=== PATIENT | female | born 1955 | race Caucasian/White ===

== ENCOUNTER → 2016-11-10 | Outpatient (CLI) | payer OTHER ==
--- NOTE | 2016-11-10 16:02 | MAMMOGRAPHY REPORT ---
BILATERAL DIGITAL DIAGNOSTIC MAMMOGRAM TOMOSYNTHESIS WITH CAD: 11/10/2016 CLINICAL HISTORY: 12 month follow-up of bilateral calcifications. TECHNIQUE: Breast tomosynthesis in addition to standard 2D mammography was performed. Current study was also evaluated with a Computer Aided Detection (CAD) system. Bilateral CC and MLO 2-D and tomosy nthesis images and spot magnification bilateral cc and ML views were obtained. COMPARISON: Comparison is made to exams dated: 11/03/2015 mammogram, 11/03/2015 ultrasound, 03/20/2015 breast MRI, 02/03/2015 ultrasound, and 01/23/2014 mammogram - [facility]. BREAST COMPOSITION: The tissue of both breasts is heterogeneously dense, which may obscure small mas ses. FINDINGS: Spot magnification views of the right breast demonstrate a new 3 mm cluster of coarse hete rogeneous calcifications in the right lateral breast at approximately 3:00. Given that the cluster i s new, it is indeterminant and stereotactic biopsy is recommended for further evaluation. Other bridger t amorphous calcifications within bilateral upper outer quadrants are stable dating back to at least the January 2015 exam and are felt to be benign given long-term stability. The remainder of both br easts are stable mammographically compared to prior exams, without suspicious masses, calcifications, or areas of architectural distortion noted. A biopsy marker clip is again noted in the right upper outer quadrant. Circumscribed benign-appearing 4.6 cm mass in the left 3:00 breast is stable and was shown to represent a benign cyst on a prior ultrasound exam. IMPRESSION: ACR BI-RADS CATEGORY 4A: LOW SUSPICION FOR MALIGNANCY 1. New small 3 mm cluster of coarse heterogeneous calcifications in the right 3:00 breast. Although the calcifications may represent a fibroadenoma or dystrophic calcifications, given that they are ne w they are indeterminate and stereotactic biopsy is recommended for further evaluation. 2. Other faint amorphous calcifications in bilateral upper outer quadrants are stable dating back to at least January 2015 and are considered benign given long-term stability. A phone call was made to the physician's office to confirm faxed results were received. The patient has been verbally notified of the results. She tentatively scheduled the biopsy before leaving the [facility]. Approximately 10% of breast cancers are not detected with mammography. A negative mammographic report should not delay biopsy if a clinically suggestive mass is present. Farida Adkins M.D. ah/:11/10/2016 14:42:20 Ingredient Handler: Nani OSBORNE)(Ozzy), [facility] letter sent: Abnormal 4/5 BI-RADS Code: ACR BI-RADS Category 4A: Low Suspicion For Malignancy
--- NOTE | 2016-12-27 12:18 | CODING QUERY NO DIAGNOSIS ---
TREATMENT RENDERED WITHOUT A DIAGNOSIS To promote full compliance with coding requirements relating to patient care, physician participation is requested in all cases of outpatient coder uncertainty. Please assist us with providing a diagnosis/symptom for the test(s) below: A diagnosis/symptom was not documented on your Order. A valid diagnosis/symptom is required to bill all insurances. Please remember that we are unable to code a diagnosis of rule out, probable, possible, questionable, or suspected. Tests that require a diagnosis: DOS: 11/10/16 * BILATERAL DIAGNOSTIC MAMMOGRAM W/ TOMOSYNTHESIS DIAGNOSIS: Provider Signature: Date: Thank you Evelin Maldonado [facility] Information Management Once completed, please kindly fax back to [phone] For questions please call [phone]
== END | disposition home or self-care (01) ==
LOC: C.MAMM 13:16
PROVIDERS: ATTEND Nurse Practitioner
DX: R92.1 Mammographic calcification found on diagnostic imaging of breast (principal)

== ENCOUNTER → 2016-11-16 | Outpatient (CLI) | payer OTHER ==
--- NOTE | 2016-11-16 13:34 | Discharge Instructions ---
Discharge Instructions Procedure Procedure Date: Nov 16, 2016. Reason for visit: Right Calcs. Discharge Discharge Date: Nov 16, 2016. Discharge Diagnosis: post right breast stereotactic guided biopsy Instructions Activity Recommendations: Additional Limitations (see below) Return to School/Work: no limitations Recommended Home Diet: No Limitations Provider Instructions: ACTIVITY RECOMMENDATIONS: * No lifting, pushing, pulling or exercising the affected side for three days. RETURN TO SCHOOL/WORK: * You may return to work/school after the procedure, but do not perform any strenuous activities for 24 to 48 hours. MEDICATIONS: * Tylenol (two 325 mg) every four to six hours if needed for mild pain (if not allergic to Tylenol). DIET: * Resume previous diet. SPECIAL CARE INSTRUCTIONS: * Keep biopsy site dry for 24 hours. May shower after 24 hours, but do not soak (bathe) incision. * May remove Tegaderm (plastic patch) tomorrow AFTER showering. * Leave the steri-strips on for one week. Allow the steri-strips to fall off by themselves. If not off after one week, you may remove them. You may place a Bandaid crosswise over the strips, if desired. * Apply ice 10 minutes on and 10 minutes off as needed. * Wear a bra at bedtime to sleep more comfortably for 2-3 days. * Your referring physician should have the results after approximately 5 to 7 business days. * Call for unusual bleeding, fever, drainage, etc or if you have any questions call [phone] during normal business hours or after hours call Dr Sands, . FOLLOW UP VISIT: Follow-up with Referring Physician as scheduled. Derek Sierra Recommendations: Call your doctor if: * Temperature above 101 degrees * Pain not relieved by pain medicine ordered * There is increased drainage or redness from any incision * You have any unanswered questions or concerns. Your Doctors Instructions noted above were prepared by provider Danette Sands. Patient Signature Section: Patient Instructions Signature Page Madison Hodgesnilam Patient (or Guardian) Signature/Date: I have read and understand the instructions given to me by my caregivers. Caregiver/RN/Doctor Signature/Date: The above-named patient and/or guardian has received patient instructions on this date. + Original Patient Signature Page (only) stays with chart. Please make copy for patient.
--- NOTE | 2016-11-16 16:10 | MAMMOGRAPHY REPORT ---
STEREOTACTIC GUIDED BIOPSY RIGHT BREAST: 11/16/2016 CLINICAL HISTORY: 61-year-old woman presents for stereotactic biopsy of a new cluster of coarse heter ogeneous microcalcifications in the 9:00 right breast. It should be noted that the microcalcificatio ns were previously described in the 3:00 axis on the diagnostic mammogram and ultrasound report, yet they are located in the lateral breast based on the CC view, and this 3 o'clock descriptor was likely erroneous. She had previously been followed for faint amorphous microcalcifications in each upper outer quadrant , and 2 years of stability were demonstrated on spot magnification views. She also has a history of benign ultrasound-guided core biopsy in the upper outer quadrant of the right breast. COMPARISON: Comparison is made to exams dated: 11/10/2016 mammogram, 11/03/2015 mammogram, and 11/03/19 16 ultrasound - [facility]. PATIENT CONSENT: After explaining the risks, benefits and alternatives of the procedure to the patien t, informed consent was obtained both verbally and in writing. Specific risks include: Bleeding, inf ection, puncture of adjacent structure, pain, nontarget biopsy, sampling error, metal allergy and med ication reaction. PROCEDURE DESCRIPTION: A time-out was performed and the right breast was confirmed as the site of bio psy. The patient was placed prone on the stereotactic biopsy table and the breast was placed in later almedial compression. A work ticket distributor image was obtained that demonstrated the clustered coarse heterogeneou s microcalcifications in question. They are amenable to sterotactic biopsy. Then +15 and -15 stere o pair images were obtained. The calcifications were targeted utilizing the coordinates obtained by t computer. The skin was prepped with Betadine. 1% Lidocaine with and without epinipherine was admi nistered as local anesthesia. A small skin incision was made. Through the incision, the needle was i nserted to the depth determined by the computer. 6 samples were obtained using a Dwellable 9-gauge vacuum-assisted biopsy device. The specimen radiograph did not demonstrate any microcalcifications, t herefore a few adjustments were made to the depth of the needle and 6 additional samples were obtaine d. The second round of samples demonstrated nearly the entire cluster of coarse heterogeneous microc alcifications, therefore, a metallic marker was placed at the biopsy site. There was no immediate com plication. Manual pressure was held over the biopsy site for approximately 25 minutes due to continu ed oozing of blood from the biopsy site. The patient left the department in satisfactory condition. The samples were sent to pathology in two appropriately labeled containers, "with calcifications" an d "without calcifications". All of the samples were obtained from the same single biopsy site. Postprocedure CC and ML views of the right breast were obtained. There is a new dumbbell shaped meta llic biopsy marker and no significant hematoma in the 9:00 posterior right breast, at the site of the biopsied clustered microcalcifications. A stable ribbon shaped clip is also seen in the right upper outer quadrant, from previous benign ultrasound guided core biopsy. IMPRESSION: STEREOTACTIC GUIDED BIOPSY Status post right breast stereotactic guided biopsy of a cluster of coarse heterogeneous microcalcifi cations in the 9:00 breast, with biopsy marker placed at the site. The patient will receive notification of the biopsy results from her referring physician. Danette Sands M.D. ay/:11/16/2016 14:29:15 Rehab Care Assistant: Cierra OSBORNE)(Ozzy), [facility]
--- NOTE | 2016-11-16 16:10 | MAMMOGRAPHY REPORT ---
UNILATERAL RIGHT DIGITAL DIAGNOSTIC MAMMOGRAM: 11/16/2016 CLINICAL HISTORY: Status post stereotactic guided biopsy of a small cluster of coarse heterogeneous m icrocalcifications in the upper outer quadrant of the right breast (approximate 9 o'clock position). Please refer to the report from right breast stereotactic guided biopsy performed at the same time fo r full detail. IMPRESSION: POST PROCEDURE IMAGING FOR MARKER PLACEMENT Please refer to the report from right breast stereotactic guided biopsy performed at the same time fo r full detail. Approximately 10% of breast cancers are not detected with mammography. A negative mammographic report should not delay biopsy if a clinically suggestive mass is present. Danette Sands M.D. ay/:11/16/2016 13:33:38 Airframe And Powerplant Mechanic: Cierra Winn RT(R)(M), [facility] BI-RADS Code: Post Procedure Imaging For Marker Placement
== END | disposition home or self-care (01) ==
LOC: C.MAMM 12:38
PROVIDERS: ATTEND Family Medicine
DX: R92.0 Mammographic microcalcification found on diagnostic imaging of breast (principal); D24.1 Benign neoplasm of right breast

== ENCOUNTER → 2016-12-02 | Outpatient (CLI) | payer OTHER | END | disposition home or self-care (01) | LOC: C.CPL 12:32 | PROVIDERS: ATTEND Orthopaedic Surgery | DX: S83.241D Other tear of medial meniscus, current injury, right knee, subsequent encounter (principal); X58.XXXD Exposure to other specified factors, subsequent encounter; Z01.810 Encounter for preprocedural cardiovascular examination ==

== ENCOUNTER 2018-10-14 18:08 | Inpatient (IN) ==
--- OUTSIDE RECORDS SUMMARY | 2018-10-14 18:10 | External Medical Summary | Continuity of Care Document ---
:1955 Author Name Karina Davey, Provider Address Unavailable Unavailable , Care Team Providers Name Role Phone Unavailable Unavailable Unavailable RANDY PINTO II Unavailable Unavailable Problems Active medical history not documented Allergies and Adverse Reactions Allergy history not documented Medications Medications not documented Procedures Procedures not documented Immunizations Immunizations not documented Plan of Treatment Planned Observations Planned Goals not documented Results No Known Results Results not documented
[2018-10-14] MEDS ORDERED: SODIUM CHLORIDE 0.9% 1000ML 1,000 ML IV ONE (18:26)
[2018-10-14] MEDS ORDERED: LORazepam 0.5 MG/1 ML VIAL IV STA (18:26)
[2018-10-14 18:42] LABS: Basophils # (auto) 0.06 K/uL (0-0.2); Basophils % (auto) 0.9 %; Eosinophils % (auto) 1.4 %; Hemoglobin 13.8 g/dL (12.0-16.0); Immature Granulocytes # (auto) 0.01 K/uL (0.00-0.02); Immature Granulocytes % (auto) 0.1 %; Lymphocytes # (auto) 1.44 K/uL (1.2-3.4); Lymphocytes % (auto) 20.4 %; Mean Corpuscular Hgb Conc 35.4 g/dL (32-36); Mean Corpuscular Volume 90.3 fL (80-100); Mean Platelet Volume 9.2 fL (7.4-10.4); Monocytes # (auto) 0.36 K/uL (0.11-0.59); Monocytes % (auto) 5.1 %; Neutrophils # (auto) 5.08 K/uL (1.4-6.5); Neutrophils % (auto) 72.1 %; Platelet Count 279 K/uL (130-400); Red Blood Count 4.32 M/uL (4.2-5.4); White Blood Count 7.05 K/uL (4.8-10.8)
[2018-10-14 18:58] LABS: Alanine Aminotransferase 17 U/L (12-78); Albumin Level 4.2 gm/dl (3.4-5.0); Aspartate Aminotransferase 16 U/L (15-37); BUN Creatinine Ratio 11.7 (10-20); Bilirubin Direct 0.1 mg/dl (0-0.2); Blood Urea Nitrogen 10 mg/dl (7-18); Carbon Dioxide 24 mmol/L (21-32); Chloride 93 mmol/L (98-107); Creatinine Clr Calc Pharmacy 62.6 ml/min; Est GFR (African American) 83.9; Est GFR (Non-African American) 72.4; Glucose 172 mg/dl (70-99); Potassium 3.9 mmol/L (3.5-5.1); Sodium 126 mmol/L (136-145)
[2018-10-14 19:03] LABS: Alkaline Phosphatase 83 U/L (45-117); Bilirubin,Total 0.4 mg/dl (0.2-1); Total Protein 7.4 gm/dl (6.4-8.2); Troponin I < 0.015 ng/ml (0-0.045)
--- NOTE | 2018-10-14 19:08 | CT Scan Report ---
HEAD CT NONCONTRAST CT DOSE: 537.48 mGy.cm HISTORY: Headache. Weakness. TECHNIQUE: Multiaxial CT images of the head were performed without the use of intravenous contrast. A utomated exposure control was utilized for this study. A dose lowering technique was utilized adheri ng to the principles of ALARA. Comparison: None. Findings: Small fluid level within the left maxillary sinus. The mastoid air cells are clear. The telly varium and skull base are intact. The ventricles and sulci are within normal limits. There is no mass , hematoma, midline shift, or acute infarct. Impression: No acute intracranial abnormality. Electronically signed by: Weston Brown M.D. 10/14/2018 7:05 PM
--- NOTE | 2018-10-14 19:41 | Emergency Department Note ---
Entered by Sd Pipre acting as a scribe for Andres Cooper History of Present Illness General Chief complaint: Syncope (Near Syncope) Stated complaint: HIGH BLOOD PRESSURE, DIZZY Time Seen by Provider: 10/14/18 18:17 Source: patient History of Present Illness Provider complaint: Weakness Onset (ago): hour(s) 2 Location: left and right Maximum Pain Intensity: 1 Current Pain Intensity: 1 Associated symptoms: + denies other symptoms (blood in stools or urine), + headaches and + weakness; no chest pain and no shortness of breath Treatments prior to arrival: none The patient is a 63 year old female who presents to the Emergency Room with complaints of feelings of weakness and felt like she was going to pass out that began 2 hours ago. She notes that her symptoms came on suddenly. The patient states that she woke up this morning with a headache but it has since resolved. She adds that she checked her BP prior to arrival and it was high. The patient also complains of diarrhea. She denies CP, SOB, and blood in stools or urine. Home Medications Home Medications Medication Instructions Recorded Confirmed Type aspirin 81 mg PO DAILY 10/14/18 10/14/18 History cinnamon bark [Cinnamon] 500 mg PO DAILY 10/14/18 10/14/18 History coenzyme Q10 [CoQ-10] 100 mg PO DAILY 10/14/18 10/14/18 History levothyroxine [Synthroid] 50 mcg PO DAILY 10/14/18 10/14/18 History multivitamin 1 tab PO DAILY 10/14/18 10/14/18 History red yeast rice 600 mg PO DAILY 10/14/18 10/14/18 History Allergies Allergy/AdvReac Type Severity Reaction Status Date / Time No Known Allergies Allergy Unverified 10/14/18 18:34 Past Med/Surg History Social History Preferred Language: Cypriot Feels Safe at Home: Yes Smoking Status: Never smoker Review of Systems See HPI for pertinent positives & negatives. and A total of 10 systems reviewed and were otherwise negative Physical Exam Vital Signs Vital Signs - 24 hr 10/14/18 18:12 10/14/18 19:00 10/14/18 19:28 Temperature 36.7 C Temperature Source Oral Sepsis Recent Fever Within 48 Hours No Sepsis New/Unexplained Change in Mental Status No Sepsis Action Taken by Nursing No Action Required Pulse Rate 99 H 80 83 Pulse Rate from SpO2 Sensor 84 Pulse Rhythm Regular Respiratory Rate 18 15 17 Blood Pressure 180/84 H 128/78 Blood Pressure Mean 116 94 Pulse Oximetry 99 96 97 Oxygen Delivery Method Room Air Room Air Room Air 10/14/18 19:30 Temperature Temperature Source Sepsis Recent Fever Within 48 Hours Sepsis New/Unexplained Change in Mental Status Sepsis Action Taken by Nursing Pulse Rate 80 Pulse Rate from SpO2 Sensor 80 Pulse Rhythm Respiratory Rate 15 Blood Pressure 143/74 H Blood Pressure Mean 97 Pulse Oximetry 96 Oxygen Delivery Method Room Air GENERAL: She is oriented to person, place, and time. She appears well-developed and well-nourished. She does not appear distressed. HENT: Exam performed. Head: Normocephalic and atraumatic. Right Ear: External ear normal. No mastoid tenderness. Left Ear: External ear normal. No mastoid tenderness. Mouth/Throat: The oropharynx is clear and moist. No trismus in the jaw. No dental abscesses or uvula swelling. No oropharyngeal exudate or tonsillar abscesses. EYES: Conjunctivae and EOM are normal. Pupils are equal, round, and reactive to light. Right eye exhibits no discharge. Left eye exhibits no discharge. No scleral icterus. NECK: Normal range of motion. Neck supple. No JVD present. No spinous process tenderness present. No carotid bruit present. No rigidity. No tracheal deviation and normal range of motion present. No Brudzinski's sign and no Kernig's sign noted. CV: Normal rate, regular rhythm, normal heart sounds and intact distal pulses. There is no peripheral edema. Palpable radial pulses bue. PULM/CHEST: Effort normal and breath sounds normal. No respiratory distress. No stridor. She has no wheezes. She has no rales. Chest Wall: She exhibits no tenderness. ABD: The abdomen is soft. Bowel sounds are normal. She has no distension. No mass is present. There is no tenderness. There is no rebound, no guarding, no Chavira's sign and no tenderness at McBurney's point. Rovsig negative MUSC/SKEL: Normal range of motion. There is no peripheral edema, tenderness or deformity. LYMPH: No cervical adenopathy. NEURO: She is alert and oriented to person, place, and time. She has normal str ength. No cranial nerve deficit or sensory deficit. Coordination and gait normal. GCS eye subscore is 4. GCS verbal subscore is 5. GCS motor subscore is 6. cerbellar tests wnl. SKIN: Skin is warm and dry. She is not diaphoretic. PSYCH: She has a normal mood and affect. Her behavior is normal. Judgment and thought content normal. Course 1822: The patient was evaluated in room B11. A complete history and physical exam was performed. 1914: Vital signs stable. Imaging within normal limits, labs show a sodium of126. Patient states that after she began feeling weak today, she began drinking lots of water. Patient's hyponatremia could be due to increased water intake. Patient will be admitted for hyponatremia to Dr. Madden service. On repeat exam, the patient's neurological exam is within normal limits, no cerebellar ataxia, no motor or sensory deficits, cranial nerves within normal limits. Given this no hypertonic saline will be placed at this point. Administered Medications Discontinued Medications Lorazepam (Ativan) 0.5 mg in 1 mls @ 1 mls/min IV NOW STA Stop: 10/14/18 18:27 Last Admin: 10/14/18 18:43 Dose: 1 mls/min Documented by: [id number] Sodium Chloride (Nss 1000ml) 1,000 mls @ 999 mls/hr IV .Q1H1M ONE Stop: 10/14/18 19:26 Last Admin: 10/14/18 18:38 Dose: 999 mls/hr Documented by: [id number] Medical Decision Making Medical Records Attestation: I reviewed the patient's medical records. Home Medications Current Medication List: was personally reviewed by me Laboratory Data Attestation: I reviewed the patient's lab results. Result diagrams: 10/14/18 18:35 10/14/18 18:35 Lab Results 10/14/18 10/14/18 Range/Units 18:35 18:35 WBC 7.05 (4.8-10.8) K/uL RBC 4.32 (4.2-5.4) M/uL Hgb 13.8 (12.0-16.0) g/dL Hct 39.0 (37-47) % MCV 90.3 (80-100) fL MCH 31.9 (25-34) pg MCHC 35.4 (32-36) g/dL RDW Std Deviation 43.0 (36.4-46.3) fL RDW Coeff of Ozzy 13.0 (11.5-14.5) % Plt Count 279 (130-400) K/uL MPV 9.2 (7.4-10.4) fL Immature Gran % (Auto) 0.1 % Neut % (Auto) 72.1 % Lymph % (Auto) 20.4 % Furn[place] % (Auto) 5.1 % Eos % (Auto) 1.4 % Baso % (Auto) 0.9 % Immature Gran # (Auto) 0.01 (0.00-0.02) K/uL Neut # (Auto) 5.08 (1.4-6.5) K/uL Lymph # (Auto) 1.44 (1.2-3.4) K/uL Furn[place] # (Auto) 0.36 (0.11-0.59) K/uL Eos # (Auto) 0.10 (0-0.5) K/uL Baso # (Auto) 0.06 (0-0.2) K/uL Sodium 126 L (136-145) mmol/L Potassium 3.9 (3.5-5.1) mmol/L Chloride 93 L (98-107) mmol/L Carbon Dioxide 24 (21-32) mmol/L Anion Gap 9.0 (3-11) BUN 10 (7-18) mg/dl Creatinine 0.85 (0.6-1.2) mg/dl Est Cr Clr Drug Dosing 62.6 ml/min Est GFR ( Amer) 83.9 Est GFR (Non-Af Amer) 72.4 BUN/Creatinine Ratio 11.7 (10-20) Glucose 172 H (70-99) mg/dl Calcium 9.0 (8.5-10.1) mg/dl Total Bilirubin 0.4 (0.2-1) mg/dl Direct Bilirubin 0.1 (0-0.2) mg/dl AST 16 (15-37) U/L ALT 17 (12-78) U/L Alkaline Phosphatase 83 (45-117) U/L Troponin I < 0.015 (0-0.045) ng/ml Total Protein 7.4 (6.4-8.2) gm/dl Albumin 4.2 (3.4-5.0) gm/dl Lipase 105 (73-393) U/L Imaging Data Radiologist's Impression: Radiology results as stated below per my review and the radiologist's interpretation: HEAD CT NONCONTRAST CT DOSE: 537.48 mGy.cm HISTORY: Headache. Weakness. TECHNIQUE: Multiaxial CT images of the head were performed without the use of intravenous contrast. Automated exposure control was utilized for this study. A dose lowering technique was utilized adhering to the principles of ALARA. Comparison: None. Findings: Small fluid level within the left maxillary sinus. The mastoid air cells are clear. The calvarium and skull base are intact. The ventricles and sulci are within normal limits. There is no mass, hematoma, midline shift, or acute infarct. Impression: No acute intracranial abnormality. Electronically signed by: Weston Brown M.D. 10/14/2018 7:05 PM ECG Data Attestation: I personally reviewed and interpreted this ECG as follows: Indication: weakness Rate (beats per minute): 90 Rhythm: other (sinus arrhythmia ) Findings: + other (NJ interval is 159, QRS 56, QTC 440); no ST depression and no ST elevation Blood Pressure Blood Pressure Findings: Elevated blood pressure Blood Pressure Disposition: further management by hospitalist [facility] Narrative Vital signs stable. Imaging within normal limits, labs show a sodium of126. Patient states that after she began feeling weak today, she began drinking lots of water. Patient's hyponatremia could be due to increased water intake. Patient will be admitted for hyponatremia to Dr. Madden service. On repeat exam, the patient's neurological exam is within normal limits, no cerebellar ataxia, no motor or sensory deficits, cranial nerves within normal limits. Given this no hypertonic saline will be placed at this point. Impression & Plan Acute hyponatremia Discharge Plan Visit Data Chief Complaint: Syncope (Near Syncope) Stated Complaint: HIGH BLOOD PRESSURE, DIZZY ED Provider: Andres Cooper Discharge Problem: Acute hyponatremia Patient Disposition: Being Evaluated by Hospitalist Forms Stand Alone Forms: My [facility] Prescriptions Prescriptions: No Action multivitamin Tablet 1 tab PO DAILY RF: 0 aspirin 81 mg Tablet,Delayed Release (Dr/Ec) 81 mg PO DAILY RF: 0 levothyroxine [Synthroid] 50 mcg tablet 50 mcg PO DAILY RF: 0 coenzyme Q10 [CoQ-10] 100 mg Capsule 100 mg PO DAILY RF: 0 cinnamon bark [Cinnamon] 500 mg Capsule 500 mg PO DAILY RF: 0 red yeast rice 600 mg Capsule 600 mg PO DAILY RF: 0 Referrals Referrals: Guicho Case [Primary Care Provider] - The scribe's documentation has been prepared under my direction and personally reviewed by me in its entirety. I confirm that the note above accurately reflects all work, treatment, procedures, and medical decision making performed by me.
[2018-10-14 21:18] LABS: Appearance Urine Clear (Clear); Bilirubin Urine Negative (Negative); Blood Urine Negative (Negative); Color Urine Yellow; Glucose Urine UA Negative (Negative); Ketones Urine Negative (Negative); Leukocyte Esterase Urine Negative (Negative); Nitrite Urine Negative (Negative); Protein Urine Negative (Negative); Specific Gravity Urine 1.009 (1.000-1.030); Urobilinogen Urine Negative (Negative); pH Urine 6.5 (4.5-7.5)
--- NOTE | 2018-10-14 21:48 | History & Physical Report ---
Date of Service October 14, 2018 Assessment & Plan (1) Near syncope: Symptoms have for the most part resolved at this point. The patient will be admitted to telemetry for serial cardiac enzymes, serial EKG's, cardiac rhythm monitoring and a 2-D echocardiogram with Dopplers.. CT of head was negative. We will also order carotid Dopplers. Continue aspirin 81 mg daily. Present on Admission?: Yes (2) Acute hyponatremia: Sodium was 126 upon admission. Patient did have 2 beers and a glass of white wine last evening, which is not unusual for her. She did also drink a large volume of water this morning to pre vent any headache. It is possible that she may have just inadvertently had a polydypsic episode. We will recheck a BMP and magnesium level in the a.m. The low sodium may be an explanation of her symptoms. Present on Admission?: Yes (3) Hyperlipidemia: Patient takes red yeast rice 600 mg daily. Check a fasting lipid panel. Present on Admission?: Yes (4) Hypothyroidism (acquired): Continue levothyroxine sodium 50 mcg p.o. daily. Check a TSH. Present on Admission?: Yes (5) Hyperglycemia: Random glucose was 172 upon admission. We will check a hemoglobin A1c. Present on Admission?: Yes History of Present Illness Chief Complaint: The patient presents to the emergency department with symptoms of feeling lightheaded dizzy, generally weak to the point of near passing out. Primary Care Provider: Guicho Case The patient is a 63-year-old female with a past medical history including hyperlipidemia and hypothyroidism, who developed acute onset of generalized weakness, dizziness and near syncope. When she checked her blood pressure she found her blood pressure to be high, and with concerns regarding a heart attack or stroke, she came to the emergency department for assessment. In the emergency department, CT of the head was found to be negative, and laboratory work-up was otherwise significant for sodium of 126, and glucose of 172. She was then referred for evaluation for admission. Allergies Allergy/AdvReac Type Severity Reaction Status Date / Time No Known Allergies Allergy Unverified 10/14/18 18:34 Home Medications Home Medications Medication Instructions Recorded Confirmed Type aspirin 81 mg PO DAILY 10/14/18 10/14/18 History cinnamon bark [Cinnamon] 500 mg PO DAILY 10/14/18 10/14/18 History coenzyme Q10 [CoQ-10] 100 mg PO DAILY 10/14/18 10/14/18 History levothyroxine [Synthroid] 50 mcg PO DAILY 10/14/18 10/14/18 History multivitamin 1 tab PO DAILY 10/14/18 10/14/18 History red yeast rice 600 mg PO DAILY 10/14/18 10/14/18 History Past Med/Surg History Social History Preferred Language: Azeri Feels Safe at Home: Yes Smoking Status: Never smoker Review of Systems Review of Systems: The patient denies chest pain, palpitations, shortness of breath, dyspnea on exertion, cough, lower extremity swelling, sore throat, fevers, chills, sweats, weight change, fatigue, nausea, vomiting, diarrhea , constipation, abdominal pain, pelvic pain, blood in urine or stool, dysuria, urinary frequency or urgency, memory loss, loss of consciousness, rash, abnormal bruising or bleeding, imbalance, focal weakness, numbness or tingling in arms or legs, generalized arthralgias or myalgias, back or neck pain, or night sweats. The review of systems is otherwise negative other than for that already noted above, and at least 10 systems have been reviewed. Physical Exam Physical Exam: The patient is awake, alert and oriented 3, well developed and well nourished, normocephalic and atraumatic, lying in bed and in no acute distress. HEENT--PERRL, EOMI, mucous membranes and oropharynx normal. Neck--supple. No JVD. No bruits. Thyroid normal, trachea midline, no adenopathy. Heart--normal S1 and S2. No murmurs, rubs or gallops. Lungs--clear bilaterally, no respiratory distress, no accessory muscle use. Abdomen--normal bowel sounds and soft. Nontender. Nondistended, no hernias or masses, no organomegaly. Extremities--no cyanosis or clubbing. No edema. There are good distal pulses b/l. Dermatologic--normal skin turgor, normal color, no abnormal lymph nodes, no rash. Neurologic--cranial nerves II through XII grossly intact. Rheumatologic--normal range of motion. Psychiatric--normal affect. Results & Data Vital Signs (Past 12 Hours) Vital Signs Temp Pulse Resp BP Pulse Ox 10/14/18 20:00 80 17 138/74 96 10/14/18 19:30 80 15 143/74 H 96 10/14/18 19:28 83 17 128/78 97 10/14/18 19:00 80 15 96 10/14/18 18:12 98.1 F 99 H 18 180/84 H 99 Laboratory Results Laboratory Results WBC 7.05 K/uL (4.8-10.8) 10/14/18 18:35 RBC 4.32 M/uL (4.2-5.4) 10/14/18 18:35 Hgb 13.8 g/dL (12.0-16.0) 10/14/18 18:35 Hct 39.0 % (37-47) 10/14/18 18:35 MCV 90.3 fL (80-100) 10/14/18 18:35 MCH 31.9 pg (25-34) 10/14/18 18:35 MCHC 35.4 g/dL (32-36) 10/14/18 18:35 RDW Std Deviation 43.0 fL (36.4-46.3) 10/14/18 18:35 RDW Coeff of Ozzy 13.0 % (11.5-14.5) 10/14/18 18:35 Plt Count 279 K/uL (130-400) 10/14/18 18:35 MPV 9.2 fL (7.4-10.4) 10/14/18 18:35 Immature Gran % (Auto) 0.1 % 10/14/18 18:35 Neut % (Auto) 72.1 % 10/14/18 18:35 Lymph % (Auto) 20.4 % 10/14/18 18:35 Barber % (Auto) 5.1 % 10/14/18 18:35 Eos % (Auto) 1.4 % 10/14/18 18:35 Baso % (Auto) 0.9 % 10/14/18 18:35 Immature Gran # (Auto) 0.01 K/uL (0.00-0.02) 10/14/18 18:35 Neut # (Auto) 5.08 K/uL (1.4-6.5) 10/14/18 18:35 Lymph # (Auto) 1.44 K/uL (1.2-3.4) 10/14/18 18:35 Barber # (Auto) 0.36 K/uL (0.11-0.59) 10/14/18 18:35 Eos # (Auto) 0.10 K/uL (0-0.5) 10/14/18 18:35 Baso # (Auto) 0.06 K/uL (0-0.2) 10/14/18 18:35 Sodium 126 mmol/L (136-145) L 10/14/18 18:35 Potassium 3.9 mmol/L (3.5-5.1) 10/14/18 18:35 Chloride 93 mmol/L (98-107) L 10/14/18 18:35 Carbon Dioxide 24 mmol/L (21-32) 10/14/18 18:35 Anion Gap 9.0 (3-11) 10/14/18 18:35 BUN 10 mg/dl (7-18) 10/14/18 18:35 Creatinine 0.85 mg/dl (0.6-1.2) 10/14/18 18:35 Est Cr Clr Drug Dosing 62.6 ml/min 10/14/18 18:35 Est GFR ( Amer) 83.9 10/14/18 18:35 Est GFR (Non-Af Amer) 72.4 10/14/18 18:35 BUN/Creatinine Ratio 11.7 (10-20) 10/14/18 18:35 Glucose 172 mg/dl (70-99) H 10/14/18 18:35 Calcium 9.0 mg/dl (8.5-10.1) 10/14/18 18:35 Total Bilirubin 0.4 mg/dl (0.2-1) 10/14/18 18:35 Direct Bilirubin 0.1 mg/dl (0-0.2) 10/14/18 18:35 AST 16 U/L (15-37) 10/14/18 18:35 ALT 17 U/L (12-78) 10/14/18 18:35 Alkaline Phosphatase 83 U/L (45-117) 10/14/18 18:35 Troponin I < 0.015 ng/ml (0-0.045) 10/14/18 18:35 Total Protein 7.4 gm/dl (6.4-8.2) 10/14/18 18:35 Albumin 4.2 gm/dl (3.4-5.0) 10/14/18 18:35 Lipase 105 U/L (73-393) 10/14/18 18:35 Urine Color Yellow 10/14/18 21:09 Urine Appearance Clear (Clear) 10/14/18 21:09 Urine pH 6.5 (4.5-7.5) 10/14/18 21:09 Ur Specific [place] 1.009 (1.000-1.030) 10/14/18 21:09 Urine Protein Negative (Negative) 10/14/18 21:09 Urine Glucose (UA) Negative (Negative) 10/14/18 21:09 Urine Ketones Negative (Negative) 10/14/18 21:09 Urine Blood Negative (Negative) 10/14/18 21:09 Urine Nitrite Negative (Negative) 10/14/18 21:09 Urine Bilirubin Negative (Negative) 10/14/18 21:09 Urine Urobilinogen Negative (Negative) 10/14/18 21:09 Ur Leukocyte Esterase Negative (Negative) 10/14/18 21:09 Diagnostic Findings [place], [place] [phone] CT Scan Report Patient: JADA LEHMAN EAdmit Date: 10/14/18 MR#: [id number]NADOS Acct ID:[id number]: [address] Date: [address] [place] [address] Zip: [place] [address] Age: 63Location: ED Sex: F Room/Bed: Att Phy: Diagnosis: HIGH BLOOD PRESSURE, DIZZY Aicha Phy: Guicho Case M.D.Service Date: 10/14/18 [facility] Phy: Interpreting Phy: Weston Brown MD Admit Phy: Ordering Phy: Andres Cooper M.D. cc: ~ HEAD CT NONCONTRAST CT DOSE: 537.48 mGy.cm HISTORY: Headache. Weakness. TECHNIQUE: Multiaxial CT images of the head were performed without the use of intravenous contrast. Automated exposure control was utilized for this study. A dose lowering technique was utilized adhering to the principles of ALARA. Comparison: None. Findings: Small fluid level within the left maxillary sinus. The mastoid air cells are clear. The calvarium and skull base are intact. The ventricles and sulci are within normal limits. There is no mass, hematoma, midline shift, or acute infarct. Impression: No acute intracranial abnormality. Electronically signed by: Weston Brown M.D. 10/14/2018 7:05 PM Dictated: 10/14/189 Transcribed: 10/14/181858 Code Status & VTE Plan Code Status Full code VTE Prophylaxis Plan VTE Prophylaxis will be ordered: Yes PG Care Time/CCT Total # of Minutes Spent Total Time Spent with Patient: Total time spent is greater than 50% in coordination of care (as documented) at patient's floor/unit and/or counseling patient:
[2018-10-14] MEDS ORDERED: MAGNESIUM HYDROXIDE SUSP 30 ML UDC PO PRN (22:36)
[2018-10-14] MEDS ORDERED: ALUMINUM/MAGNESIUM SUSP 30 ML UDC PO PRN (22:36)
[2018-10-14] MEDS ORDERED: ONDANSETRON INJ 2 MG/ML 2 ML VIAL IV PRN (22:36)
[2018-10-14] MEDS ORDERED: ACETAMINOPHEN 325 MG TAB PO PRN (22:36)
[2018-10-14 22:45] LABS: Lyme Ab IgG w/WB Rflx Negative (Negative); Lyme Ab IgM w/WB Rflx Negative (Negative)
[2018-10-15] MEDS ORDERED: LEVOTHYROXINE SODIUM 50 MCG TABLET PO SCH (06:30)
[2018-10-15] MEDS ORDERED: MULTIVITAMIN TAB PO SCH (09:00)
[2018-10-15] MEDS ORDERED: ASPIRIN 81 MG ECTAB PO SCH (09:00)
[2018-10-15 09:20] LABS: Calcium 9.1 mg/dl (8.5-10.1); Creatinine Clr Calc Pharmacy 72.9 ml/min; Est GFR (African American) 100.9; Potassium 3.7 mmol/L (3.5-5.1)
--- NOTE | 2018-10-15 15:47 | Ultrasound Report ---
ULTRASOUND OF THE CAROTID ARTERIES CLINICAL HISTORY: Syncope. COMPARISON STUDY: No priors. TECHNIQUE: Real-time, grayscale, and color Doppler sonography of the carotid arteries is performed. I mages are reviewed in the transverse and longitudinal planes. FINDINGS: Blood pressure in the right arm measures 141/73 and blood pressure in the left arm measures 125/83. The carotid arteries are patent bilaterally and demonstrate antegrade flow. There is no significant a therosclerotic plaque identified. Normal doppler arterial waveforms are seen throughout. Velocity ludmila surements are listed below. Common carotid peak systolic velocity (cm/sec): RIGHT: 84 LEFT: 78 ICA proximal peak systolic velocity (cm/sec): RIGHT: 59 LEFT: 47 ICA mid peak systolic velocity (cm/sec): RIGHT: 66 LEFT: 69 ICA distal peak systolic velocity (cm/sec): RIGHT: 67 LEFT: 67 ICA/CC peak systolic ratio: RIGHT: 0.8 LEFT: 0.9 Antegrade flow was shown in the vertebral arteries. The external carotid arteries are patent. IMPRESSION: 1. There is no sonographic evidence of hemodynamically significant stenosis in the right or left [place] arterial system. 2. Antegrade flow is shown in the vertebral arteries. Electronically signed by: Sd Lewis M.D. 10/15/2018 3:45 PM
[2018-10-16 06:06] LABS: Estimated Average Glucose 105 mg/dl; Hemoglobin A1C 5.3 % (4.5-5.6)
--- NOTE | 2018-10-19 07:48 | Discharge Summary ---
Date of Service October 15, 2018 Admission HPI Per Admitting Provider The patient is a 63-year-old female with a past medical history including hyperlipidemia and hypothyroidism, who developed acute onset of generalized weakness, dizziness and near syncope. When she checked her blood pressure she found her blood pressure to be high, and with concerns regarding a heart attack or stroke, she came to the emergency department for assessment. In the emergency department, CT of the head was found to be negative, and laboratory work-up was otherwise significant for sodium of 126, and glucose of 172. She was then referred for evaluation for admission. Principal Diagnosis hyponatremia Discharge Exam The patient is awake, alert and oriented 3 HEENT--PERRL, EOMI, mucous membranes and oropharynx normal. Neck--supple. No JVD. No bruits. Thyroid normal, trachea midline, no adenopathy. Heart--normal S1 and S2. No murmurs, rubs or gallops. Lungs--clear bilaterally, no respiratory distress, no accessory muscle use. Abdomen--normal bowel sounds and soft. Nontender. Nondistended, no hernias or masses, no organomegaly. Extremities--no cyanosis or clubbing. No edema. There are good distal pulses b/l. Dermatologic--normal skin turgor, normal color, no abnormal lymph nodes, no rash. Neurologic--cranial nerves II through XII grossly intact. Rheumatologic--normal range of motion. Psychiatric--normal affect. Discharge Data Allergies Allergy/AdvReac Type Severity Reaction Status Date / Time No Known Allergies Allergy Unverified 10/14/18 18:34 Consultations 10/14/18 19:14 ED Decision to Admit Stat 10/14/18 22:36 Consult Case Management - Discharge Planning Routine 10/15/18 13:[address] [facility] Routine Ordered Studies 10/14/18 18:27 CT head/brain wo con Stat 10/15/18 13:38 US carotid doppler BI Routine Hospital Course (1) Near syncope: Symptoms have for the most part resolved at this point. Syncope likely secondary to hyponatremia. Your cardiac workup and carotid ultrasounds were negative. CT head was negative Continue aspirin 81 mg daily. Will discharge patient on 10/15 Recommend f/u with lab for outpatient sodium in 1 week. (2) Acute hyponatremia: Sodium was 126 upon admission. Patient did have 2 beers and a glass of white wine last evening, which is not unusual for her. She did also drink a large volume of water this morning to prevent any headache. On day of discharge sodium has improved. Doubt SIADH. (3) Hyperlipidemia: Patient takes red yeast rice 600 mg daily. Check a fasting lipid panel. WILL DEFER TO PCP. (4) Hypothyroidism (acquired): Continue levothyroxine sodium 50 mcg p.o. daily. will defer to PCP. (5) Hyperglycemia: Random glucose was 172 upon admission. A1C was below 6.5 Total Time Total Time Spent Total Time Spent (In Minutes): 32 Total Time Includes: Examination of the Patient, Discharge Planning and Medication Reconciliation Discharge Plan Discharge Items Patient Disposition: Home - Self-Care Reason For Visit: NEAR SYNCOPE, HYPONATREMIA Discharge Diagnosis: Near syncope Discharge Goals: Decrease discomfort Activity: Resume your previous activity Non-emergency contact: Primary Care Provider Call non-emergency contact if: you have any medication questions Follow-up/Referrals: Guicho Case [Primary Care Provider] - Diet: Regular Addtl Provider Instructions: You were seen for low soidum levels. Your ct scan of the brain was normal. Also ordered a doppler ultrasound of the carotid. Will recommend follwoup with your PCP within 1 month. Prescriptions: Continued multivitamin Tablet 1 tab PO DAILY RF: 0 aspirin 81 mg Tablet,Delayed Release (Dr/Ec) 81 mg PO DAILY RF: 0 levothyroxine [Synthroid] 50 mcg tablet 50 mcg PO DAILY RF: 0 coenzyme Q10 [CoQ-10] 100 mg Capsule 100 mg PO DAILY RF: 0 cinnamon bark [Cinnamon] 500 mg Capsule 500 mg PO DAILY RF: 0 red yeast rice 600 mg Capsule 600 mg PO DAILY RF: 0 Stand-Alone Forms: [facility] Discharge Orders: Discharge Order (Routine); Ordered 10/15/18 Ordered By: Guicho Albarran Admission Data Admit Date/Time: 10/14/18 21:18 Attending Provider: Guicho Albarran Admit Provider: Tomer Vieira Primary Care Provider: Guicho Case Other Providers: Tomer Vieira Service: Telemetry Medical Other Interventions: Discharge Summary Assessment (RN) Last Done: 10/15/18 14:27 DC Date/Time DO NOT enter until pt leaves facility: 10/15/18 17:21
== END 2018-10-15 17:21 | disposition home or self-care (01) | DRG 641 ==
LOC: 2N 18:08 → ED 18:08 → OBSVTOIN 21:18 → SUATTDRO 21:18 → 2N 22:05